=== PATIENT | female | born 1975 | race Caucasian/White ===

== ENCOUNTER 2016-06-30 13:40 | Emergency (ER) | payer BC ==
[~2016-06-30] VITALS: Ht 157.5 cm; Wt 140.0 kg
[~2016-06-30 13:40] MED LIST: (None)3.5 GM OP; ACETTAB3 OR; AMOXICILLIN/CL875 MG PO; CARAFATE PO; CIPRO500 MG OR; CORTISPORIN OP7.5 ML OP; CYMBALTA30 MG PO; DOXYCYCL HYC100 M4 PO; EFFEXOR XR150 MG OR; EFFEXOR XR75 MG OR; ELIMITE5 % EX; ENALAPRIL5 MG; FLEXERIL PO; GEODON80 MG OR; HYDROXYZ HCL25 MG OR; KLONOPIN1 MG PO; LAMICTAL100 M1 OR; LAMICTAL100 M1 PO; LOPRESSOR50 MG OR; LORTAB 10-325 M1 TAB PO; LORTAB 5 OR; LORTAB5 PO; Levaquin PO; MEDDOSEPAK PO; METO50TA52 OR; METOPROL TAR50 MG OR; NAPROSYN500 MG PO; NO HOME MEDS; NORVASC PO; ONDANSETRON4 MG PO; PATANOL0.1 % OP; PLAVIX75 MG OR; PREVACID30 M2 PO; PREVACID30 M3 OR; PRILOSEC40 MG OR; PRILOSEC40 MG PO; PROCHLORPER25 MG RE; PROTONIX40 MG PO; PROZAC20 MG PO; RANITIDINE150 MG PO; TOPROL XL50 MG OR; TORADOL PO; TRAMADOL HCL50 MG OR; TRAZODONE50 MG OR; TRAZODONE50 MG PO; TYLENOL325 MG OR; ULTRAM50 M1 PO; ULTRAM50 MG PO; XANAX0.5 MG PO; ZANTAC150 M1 PO; ZOFRAN ODT4 MG SL; ZOFRAN4 MG/TAB PO; ZPAK PO
[2016-06-30 15:42] LABS: URINE BLOOD DIPSTICK NEGATIVE (NEGATIVE); URINE CLARITY CLEAR; URINE COLOR YELLOW; URINE GLUCOSE - DIPSTICK NEGATIVE (NEGATIVE); URINE KETONE 15 mg/dL (NEGATIVE); URINE LEUK ESTERASE NEGATIVE (NEGATIVE); URINE NITRITE - DIPSTICK NEGATIVE (Negative); URINE PROTEIN - DIPSTICK 30 mg/dL (NEG-TRACE); URINE UROBILINOGEN - DIPSTICK 0.2 E.U./dL (0.2)
[2016-06-30 15:44] LABS: URINE BILIRUBIN - DIPSTICK NEGATIVE (NEGATIVE)
[2016-06-30 15:49] LABS: HEMATOCRIT 46.8 % (37.0-47.0); HEMOGLOBIN 15.9 g/dl (12.0-16.0); IMMATURE GRANULOCYTES 0.3 % (0.0-1.0); MEAN CELL VOLUME 89.3 fL CALC (80.0-100.0); MEAN CORPUSCULAR HGB 30.3 pG CALC (26.0-32.0); NEUT# 7.47 thou/uL (2.00-7.15); RED BLOOD COUNT 5.24 mill/uL (4.20-5.60); RED CELL DISTRI WIDTH 12.4 % (11.5-15.5)
[2016-06-30 15:53] LABS: URINE MUCUS MANY hpf (NONE-FEW); URINE SQUAMOUS EPITHELIAL CELL FEW EPI/hpf (0-FEW)
[2016-06-30 16:00] LABS: ALBUMIN 4.7 g/dL (3.2-5.0); ALKALINE PHOSPHATASE 109 u/l (38-126); AMYLASE 46 u/l (30-110); ANION GAP 18 (6-22 (CALC)); BILIRUBIN, TOTAL 0.9 mg/dL (0.0-1.4); BUN 11 mg/dL (7-17); BUN/CREATININE RATIO 16 (12-20 (CALC)); CALCIUM 9.7 mg/dL (8.4-10.2); CARBON DIOXIDE 29 mmol/l (22-30); CHLORIDE 97 mmol/l (95-108); CREATININE 0.7 mg/dL (0.5-1.0); GFR > 60 ML/MIN (>=60 (CALC)); GFR FOR AFR.AMER. > 60 ML/MIN (>=60 (CALC)); GLUCOSE 103 mg/dL (65-105); LIPASE 48 u/l (23-300); POTASSIUM 3.6 mmol/l (3.5-5.1); SGOT/AST 110 u/l (14-36); SGPT/ALT 108 u/l (9-52); SODIUM 140 mmol/l (137-146)
[2016-06-30 16:11] LABS: MYOGLOBIN 33 ng/mL (0 - 62)
[2016-06-30] MEDS ORDERED: ZOFRAN4 MG/TAB PO (17:05)
[2016-06-30] MEDS ORDERED: NEXIUM40 M1 PO (17:05)
[2016-06-30] MEDS ORDERED: PERCOCET 5/325M1 TAB PO (18:30)
[2016-06-30] MEDS ORDERED: CIPROFLOXACN500 MG PO (19:57)
[2016-06-30 20:20] VITALS: BP 137/68
== END 2016-06-30 20:20 | disposition home or self-care (01) | DRG 392 ==
LOC: ED 13:40
PROVIDERS: Emergency Medicine
DX: K52.9 Noninfective gastroenteritis and colitis, unspecified (principal); N39.0 Urinary tract infection, site not specified; R10.13 Epigastric pain; R11.10 Vomiting, unspecified
CPT/HCPCS: Q9967; S0164

== ENCOUNTER 2016-08-17 11:22 | Emergency (ER) | payer BC ==
[~2016-08-17] VITALS: Ht 157.5 cm; Wt 138.0 kg
[~2016-08-17 11:22] MED LIST changes: +CIPROFLOXACN500 MG PO; +NEXIUM40 M1 PO; +PERCOCET 5/325M1 TAB PO
[2016-08-17 14:56] VITALS: BP 164/105
== END 2016-08-17 14:56 | disposition home or self-care (01) | DRG 556 ==
LOC: ED 11:22
DX: M79.651 Pain in right thigh (principal); R22.41 Localized swelling, mass and lump, right lower limb; M79.661 Pain in right lower leg

== ENCOUNTER 2016-10-26 10:05 | Observation (INO) | payer SELFPAY ==
[~2016-10-26] VITALS: Ht 157.5 cm; Wt 139.0 kg
[2016-10-26] MEDS ORDERED: AMLODIPINE5 MG PO (10:19)
[2016-10-26 10:56] LABS: URINE BILIRUBIN - DIPSTICK NEGATIVE (NEGATIVE); URINE BLOOD DIPSTICK NEGATIVE (NEGATIVE); URINE CLARITY CLEAR; URINE COLOR YELLOW; URINE GLUCOSE - DIPSTICK NEGATIVE (NEGATIVE); URINE KETONE NEGATIVE (NEGATIVE); URINE LEUK ESTERASE NEGATIVE (NEGATIVE); URINE NITRITE - DIPSTICK NEGATIVE (Negative); URINE PROTEIN - DIPSTICK NEGATIVE (NEG-TRACE); URINE SPECIFIC GRAVITY 1.015
[2016-10-26 10:57] LABS: HEMATOCRIT 44.1 % (37.0-47.0); HEMOGLOBIN 15.2 g/dl (12.0-16.0); IMMATURE GRANULOCYTES 0.3 % (0.0-1.0); MEAN CELL VOLUME 89.3 fL CALC (80.0-100.0); MEAN CORPUSCULAR HGB 30.8 pG CALC (26.0-32.0); MEAN CORPUSCULAR HGB CONC 34.5 g/L CALC (32.0-36.0); NEUT# 6.07 thou/uL (2.00-7.15); RED BLOOD COUNT 4.94 mill/uL (4.20-5.60); RED CELL DISTRI WIDTH 12.6 % (11.5-15.5)
[2016-10-26 11:15] LABS: ALBUMIN 4.4 g/dL (3.2-5.0); ALKALINE PHOSPHATASE 89 u/l (38-126); ANION GAP 15 (6-22 (CALC)); BILIRUBIN, TOTAL 0.5 mg/dL (0.0-1.4); BUN 9 mg/dL (7-17); BUN/CREATININE RATIO 13 (12-20 (CALC)); CALCIUM 9.6 mg/dL (8.4-10.2); CARBON DIOXIDE 25 mmol/l (22-30); CHLORIDE 103 mmol/l (95-108); CREATININE 0.7 mg/dL (0.5-1.0); GFR > 60 ML/MIN (>=60 (CALC)); GFR FOR AFR.AMER. > 60 ML/MIN (>=60 (CALC)); GLUCOSE 108 mg/dL (65-105); POTASSIUM 3.4 mmol/l (3.5-5.1); SGOT/AST 44 u/l (14-36); SGPT/ALT 79 u/l (9-52); SODIUM 140 mmol/l (137-146)
[2016-10-26 11:23] LABS: MYOGLOBIN 24 ng/mL (0 - 62)
[2016-10-26 13:07] VITALS: BP 138/84
[2016-10-26 16:10] VITALS: BP 124/67
[2016-10-26 20:25] VITALS: BP 130/85
[2016-10-27 02:02] VITALS: BP 123/75
[2016-10-27 05:33] VITALS: BP 131/73
[2016-10-27 06:40] LABS: CHOLESTEROL HDL RATIO 4.9 (<4.4 (CALC))
[2016-10-27 07:50] VITALS: BP 132/84
[2016-10-27 09:22] VITALS: BP 132/84
[2016-10-27] MEDS ORDERED: ADLT ASA LOW81 MG PO (09:47)
[2016-10-27] MEDS ORDERED: ATORVASTATIN CA10 MG PO (09:47)
== END 2016-10-27 10:58 | disposition home or self-care (01) | DRG 313 ==
LOC: ENPENDDIS → ED 10:05 → ED-I 11:30 → ED 12:22 → MS2 12:23
PROVIDERS: Emergency Medicine; ADMIT Internal Medicine; ATTEND Internal Medicine
DX: R07.89 Other chest pain (principal); I38 Endocarditis, valve unspecified; Z68.43 Body mass index [BMI] 50.0-59.9, adult; R29.0 Tetany; E66.01 Morbid (severe) obesity due to excess calories; I10 Essential (primary) hypertension; F31.9 Bipolar disorder, unspecified; F41.0 Panic disorder [episodic paroxysmal anxiety]; E78.5 Hyperlipidemia, unspecified; Z63.9 Problem related to primary support group, unspecified
CPT/HCPCS: G0378; J2060

== ENCOUNTER 2016-12-08 09:37 | Emergency (ER) | payer SELFPAY ==
[~2016-12-08] VITALS: Ht 157.5 cm; Wt 138.0 kg
[~2016-12-08 09:37] MED LIST changes: +ADLT ASA LOW81 MG PO; +AMLODIPINE5 MG PO; +ATORVASTATIN CA10 MG PO
[2016-12-08 10:25] VITALS: BP 131/83
== END 2016-12-08 10:25 | disposition home or self-care (01) | DRG 153 ==
LOC: ED 09:37
DX: J02.9 Acute pharyngitis, unspecified (principal); R53.81 Other malaise
CPT/HCPCS: J0561

== ENCOUNTER 2016-12-21 15:41 | Emergency (ER) | payer SELFPAY ==
[~2016-12-21] VITALS: Ht 157.5 cm; Wt 135.0 kg
[2016-12-21] MEDS ORDERED: EC-NAPROSYN500 MG PO (16:20)
[2016-12-21] MEDS ORDERED: TRAMADOL HYDROC50 MG PO (16:20)
[2016-12-21] MEDS ORDERED: ATORVASTATIN CA20 MG PO (16:31)
[2016-12-21 17:27] VITALS: BP 140/61
== END 2016-12-21 17:27 | disposition home or self-care (01) | DRG 563 ==
LOC: ED 15:41
DX: S93.601A Unspecified sprain of right foot, initial encounter (principal); I10 Essential (primary) hypertension; S83.91XA Sprain of unspecified site of right knee, initial encounter; F41.9 Anxiety disorder, unspecified; F31.9 Bipolar disorder, unspecified; W01.0XXA Fall on same level from slipping, tripping and stumbling without subsequent striking against object, initial encounter; Y93.89 Activity, other specified; Y92.128 Other place in nursing home as the place of occurrence of the external cause

== ENCOUNTER 2017-01-31 12:02 | Observation (INO) | payer SELFPAY ==
[~2017-01-31] VITALS: Ht 157.5 cm; Wt 134.4 kg
[~2017-01-31 12:02] MED LIST changes: +ATORVASTATIN CA20 MG PO; +EC-NAPROSYN500 MG PO; +TRAMADOL HYDROC50 MG PO
[2017-01-31 12:54] LABS: URINE BILIRUBIN - DIPSTICK NEGATIVE (NEGATIVE); URINE BLOOD DIPSTICK NEGATIVE (NEGATIVE); URINE CLARITY CLEAR; URINE COLOR YELLOW; URINE GLUCOSE - DIPSTICK NEGATIVE (NEGATIVE); URINE KETONE TRACE mg/dL (NEGATIVE); URINE LEUK ESTERASE NEGATIVE (NEGATIVE); URINE NITRITE - DIPSTICK NEGATIVE (Negative); URINE PROTEIN - DIPSTICK TRACE mg/dL (NEG-TRACE)
[2017-01-31 12:55] LABS: BARBITURATES NEGATIVE (NEGATIVE); COCAINE NEGATIVE (NEGATIVE); METHADONE NEGATIVE (NEGATIVE); OXCYCODONE NEGATIVE (NEGATIVE); TETRAHYDROCANNABIONOL NEGATIVE (NEGATIVE); TRICYLIC ANTIDEPRESSANTS NEGATIVE (NEGATIVE)
[2017-01-31 13:33] LABS: HEMATOCRIT 44.6 % (37.0-47.0); HEMOGLOBIN 15.1 g/dl (12.0-16.0); IMMATURE GRANULOCYTES 0.3 % (0.0-1.0); MEAN CELL VOLUME 91.4 fL CALC (80.0-100.0); MEAN CORPUSCULAR HGB 30.9 pG CALC (26.0-32.0); MEAN CORPUSCULAR HGB CONC 33.9 g/L CALC (32.0-36.0); NEUT# 7.33 thou/uL (2.00-7.15); RED BLOOD COUNT 4.88 mill/uL (4.20-5.60); RED CELL DISTRI WIDTH 12.2 % (11.5-15.5)
[2017-01-31 13:44] LABS: ALBUMIN 4.5 g/dL (3.2-5.0); ALKALINE PHOSPHATASE 83 u/l (38-126); AMYLASE 34 u/l (30-110); ANION GAP 15 (6-22 (CALC)); BILIRUBIN, TOTAL 0.7 mg/dL (0.0-1.4); BUN 11 mg/dL (7-17); BUN/CREATININE RATIO 17 (12-20 (CALC)); CALCIUM 9.6 mg/dL (8.4-10.2); CARBON DIOXIDE 26 mmol/l (22-30); CHLORIDE 104 mmol/l (95-108); CREATININE 0.7 mg/dL (0.5-1.0); ETHYL ALCOHOL 0 mg/dl (0-30); GFR > 60 ML/MIN (>=60 (CALC)); GFR FOR AFR.AMER. > 60 ML/MIN (>=60 (CALC)); GLUCOSE 97 mg/dL (65-105); LIPASE 56 u/l (23-300); POTASSIUM 3.4 mmol/l (3.5-5.1); SGOT/AST 31 u/l (14-36); SGPT/ALT 49 u/l (9-52); SODIUM 142 mmol/l (137-146); TOTAL PROTEIN 7.7 g/dL (6.3-8.2)
[2017-01-31 13:51] LABS: ACT PARTIAL THROMBO TIME 26.6 SECONDS (20.0-32.5); INTERNATIONAL NORMALIZED RATIO 1.1 RATIO (0.7-1.3); PROTHROMBIN TIME 11.8 SECONDS (9.0-12.5)
[2017-01-31 15:40] VITALS: BP 154/76
[2017-02-01] VITALS: BP 141/77
[2017-02-01 04:00] VITALS: BP 145/86
[2017-02-01 06:04] LABS: HEMATOCRIT 43.8 % (37.0-47.0); HEMOGLOBIN 14.9 g/dl (12.0-16.0); IMMATURE GRANULOCYTES 0.3 % (0.0-1.0); MEAN CELL VOLUME 91.6 fL CALC (80.0-100.0); MEAN CORPUSCULAR HGB 31.2 pG CALC (26.0-32.0); NEUT# 5.11 thou/uL (2.00-7.15); RED BLOOD COUNT 4.78 mill/uL (4.20-5.60); RED CELL DISTRI WIDTH 12.3 % (11.5-15.5)
[2017-02-01 06:14] LABS: ANION GAP 13 (6-22 (CALC)); BUN 12 mg/dL (7-17); BUN/CREATININE RATIO 20 (12-20 (CALC)); CALCIUM 9.5 mg/dL (8.4-10.2); CALCULATED LDLCHOLESTEROL 136 mg/dL (62-129 (CALC)); CARBON DIOXIDE 28 mmol/l (22-30); CHLORIDE 104 mmol/l (95-108); CHOLESTEROL HDL RATIO 5.1 (<4.4 (CALC)); CREATININE 0.6 mg/dL (0.5-1.0); GFR > 60 ML/MIN (>=60 (CALC)); GFR FOR AFR.AMER. > 60 ML/MIN (>=60 (CALC)); GLUCOSE 103 mg/dL (65-105); HDL CHOLESTEROL 39 mg/dL (>=40); POTASSIUM 3.8 mmol/l (3.5-5.1); SODIUM 141 mmol/l (137-146); TOTAL CHOLESTEROL 199 mg/dl (0-199); TOTAL TRIGLYCERIDES 121 mg/dl (30-149); VLDL CHOLESTROL 24 mg/dl (1-41 (CALC))
[2017-02-01 07:43] VITALS: BP 133/85
[2017-02-01 11:47] VITALS: BP 151/86
[2017-02-01] MEDS ORDERED: AMLODIPINE BESYL5 MG PO (12:25)
[2017-02-01] MEDS ORDERED: ASPIRIN ADULT L81 M2 PO (12:26)
== END 2017-02-01 13:23 | disposition home or self-care (01) | DRG 313 ==
LOC: ED 12:02 → ED-I 14:20 → ED 14:43 → MS2 14:44
PROVIDERS: Family Medicine; ADMIT Internal Medicine; ATTEND Internal Medicine
DX: R07.89 Other chest pain (principal); Z68.43 Body mass index [BMI] 50.0-59.9, adult; I10 Essential (primary) hypertension; I16.0 Hypertensive urgency; E78.5 Hyperlipidemia, unspecified; F31.9 Bipolar disorder, unspecified; F41.9 Anxiety disorder, unspecified; E66.9 Obesity, unspecified; R55 Syncope and collapse
CPT/HCPCS: G0378

== ENCOUNTER 2017-06-23 17:36 | Emergency (ER) | payer SELFPAY ==
[~2017-06-23] VITALS: Ht 157.5 cm; Wt 85.9 kg
[~2017-06-23 17:36] MED LIST changes: +AMLODIPINE BESYL5 MG PO; +ASPIRIN ADULT L81 M2 PO
[2017-06-23] MEDS ORDERED: LORTAB 1010 MG PO (17:59)
[2017-06-23 19:10] LABS: ALBUMIN 4.3 g/dL (3.2-5.0); ALKALINE PHOSPHATASE 83 u/l (38-126); ANION GAP 18 (6-22 (CALC)); BILIRUBIN, TOTAL 0.4 mg/dL (0.0-1.4); BUN 13 mg/dL (7-17); BUN/CREATININE RATIO 18 (12-20 (CALC)); CARBON DIOXIDE 27 mmol/l (22-30); CHLORIDE 98 mmol/l (95-108); CREATININE 0.7 mg/dL (0.5-1.0); GFR > 60 ML/MIN (>=60 (CALC)); GFR FOR AFR.AMER. > 60 ML/MIN (>=60 (CALC)); POTASSIUM 3.6 mmol/l (3.5-5.1); SGOT/AST 27 u/l (14-36); SGPT/ALT 42 u/l (9-52); SODIUM 140 mmol/l (137-146); TOTAL PROTEIN 7.5 g/dL (6.3-8.2)
[2017-06-23 20:35] LABS: URINE BILIRUBIN - DIPSTICK NEGATIVE (NEGATIVE); URINE BLOOD DIPSTICK NEGATIVE (NEGATIVE); URINE COLOR YELLOW; URINE GLUCOSE - DIPSTICK NEGATIVE (NEGATIVE); URINE KETONE NEGATIVE (NEGATIVE); URINE LEUK ESTERASE NEGATIVE (NEGATIVE); URINE NITRITE - DIPSTICK NEGATIVE (Negative); URINE PROTEIN - DIPSTICK NEGATIVE (NEG-TRACE); URINE UROBILINOGEN - DIPSTICK 0.2 E.U./dL (0.2)
[2017-06-23 20:43] LABS: URINE CLARITY CLEAR
[2017-06-23] MEDS ORDERED: AMLODIPINE5 MG PO (21:03)
[2017-06-23] MEDS ORDERED: METO25TAB PO (21:03)
[2017-06-23 21:26] VITALS: BP 142/83
== END 2017-06-23 21:23 | disposition home or self-care (01) | DRG 305 ==
LOC: ED 17:36
PROVIDERS: Family Medicine
DX: I10 Essential (primary) hypertension (principal)

== ENCOUNTER 2017-07-19 10:49 | Day surgery (SDC) | payer OTHER ==
[~2017-07-19 10:49] MED LIST changes: +LORTAB 1010 MG PO; +METO25TAB PO
[2017-07-19] MEDS ORDERED: PERCOCET 10/31 COMBO PO (17:56)
[2017-07-19 19:16] VITALS: BP 106/88
== END 2017-07-19 19:17 | disposition home or self-care (01) | DRG 508 ==
LOC: ORM 10:49
PROVIDERS: ATTEND Orthopaedic Surgery
PROC: 0RQJ4ZZ Repair Right Shoulder Joint, Percutaneous Endoscopic Approach (ICD-10-PCS; principal; 2017-07-19)
PROC: 0RNJ4ZZ Release Right Shoulder Joint, Percutaneous Endoscopic Approach (ICD-10-PCS; 2017-07-19)
DX: S43.431A Superior glenoid labrum lesion of right shoulder, initial encounter (principal); I10 Essential (primary) hypertension; M75.51 Bursitis of right shoulder; X58.XXXA Exposure to other specified factors, initial encounter
CPT/HCPCS: J2710

== ENCOUNTER 2017-11-17 10:03 | Emergency (ER) | payer SELFPAY ==
[~2017-11-17] VITALS: Ht 167.6 cm; Wt 122.0 kg
[~2017-11-17 10:03] MED LIST changes: +PERCOCET 10/31 COMBO PO
[2017-11-17] MEDS ORDERED: EPIPEN 2-P0.3 MG/0.3 SC (10:54)
[2017-11-17] MEDS ORDERED: DELTASONE20 MG PO (10:54)
[2017-11-17 11:01] VITALS: BP 175/92
== END 2017-11-17 11:15 | disposition home or self-care (01) | DRG 916 ==
LOC: ED 10:03
DX: T78.40XA Allergy, unspecified, initial encounter (principal); L50.0 Allergic urticaria; Y92.89 Other specified places as the place of occurrence of the external cause

== ENCOUNTER 2018-02-28 09:54 | Observation (INO) | payer SELFPAY ==
[~2018-02-28] VITALS: Ht 167.6 cm; Wt 131.6 kg
[~2018-02-28 09:54] MED LIST changes: +DELTASONE20 MG PO; +EPIPEN 2-P0.3 MG/0.3 SC
--- NOTE | 2018-02-28 10:00 | NUR ---
PT BROUGHT DIRECTLY TO RM 13 VIA WHEELCHAIR, MONITORS APPLIED AND EKG IN PROGRESS
[2018-02-28] MEDS ORDERED: BENADRYL 25MG C25 MG PO (10:09)
--- NOTE | 2018-02-28 10:10 | NUR ---
PT AMBULATED TO ROOM PT STATES THAT SHE HAS BEEN ITCHY SINCE YESTERDAY- UNKNOWN CAUSE. PT STATES THAT SHE BEGAN HAVING CHEST PRESSURE THAT WOKE HER UP ABOUT 0300. PT IS AOX4. PT DENIES ANY SOB, N/V OR WEAKNESS.
[2018-02-28 10:19] LABS: HEMATOCRIT 46.1 % (37.0-47.0); HEMOGLOBIN 15.5 g/dl (12.0-16.0); IMMATURE GRANULOCYTES 0.3 % (0.0-5.0); MEAN CELL VOLUME 91.8 fL CALC (80.0-100.0); MEAN CORPUSCULAR HGB 30.9 pG CALC (26.0-32.0); MEAN CORPUSCULAR HGB CONC 33.6 g/L CALC (32.0-36.0); NEUT# 5.32 thou/uL (2.00-7.15); RED BLOOD COUNT 5.02 mill/uL (4.20-5.60); RED CELL DISTRI WIDTH 12.6 % (11.5-15.5)
[2018-02-28 10:34] LABS: BUN 12 mg/dL (7-17); BUN/CREATININE RATIO 21 (12-20 (CALC)); CARBON DIOXIDE 26 mmol/l (22-30); CHLORIDE 105 mmol/l (95-108); CREATININE 0.6 mg/dL (0.5-1.0); GFR > 60 ML/MIN (>=60 (CALC)); GFR FOR AFR.AMER. > 60 ML/MIN (>=60 (CALC)); SODIUM 141 mmol/l (137-146)
[2018-02-28 10:38] LABS: ANION GAP 15 (6-22 (CALC)); POTASSIUM 4.6 mmol/l (3.5-5.1)
--- NOTE | 2018-02-28 11:10 | NUR ---
PT STATES THAT HER CHEST PRESSURE IS MAINTAINING AT A 3/10. PT STATES THAT ITCHING HAS DECREASED. NO OTHER COMPLAINTS OR NEEDS STATED
--- NOTE | 2018-02-28 12:10 | NUR ---
PT RESTING ON STRETCHER, NO COMPLAINTS STATED AT THIS TIME.
--- NOTE | 2018-02-28 12:28 | NUR ---
REPORT CALLED TO MARCO A SAENZN- ACCEPTED PT
--- NOTE | 2018-02-28 12:33 | NUR ---
PT ARRIVED ON FLOOR VIA STRETCHER ACCOMPANIED BY RNEAN SLATER ER STAFF; PT AMBULATED FROM STRETCHER TO DIGITAL STANDING SCALE WITH STEADY GAIT; PT COMPLAINED CHEST PAIN 3/10; PT A/O X4; VEHICLE DISMANTLER OBTAINED VITALS;
--- NOTE | 2018-02-28 12:36 | NUR ---
Admission Note Report Given to: MARCO A RAWLS Transported by: Wheelchair X Stretcher Transported with: X Nurse Transporter X Patent IV O2 X Printing Press Operator Apprentice [place] [facility] [place]
[2018-02-28 12:45] VITALS: BP 182/94
--- NOTE | 2018-02-28 13:25 | NUR ---
DR MARTIN AT BEDSIDE TO DISCUSS POC
--- NOTE | 2018-02-28 14:13 | NUR ---
PT MEDICATED WITH ZOFRAN FOR NAUSEA. FAMILIES AT BS. PT VOICED NO OTHER CONCERNS.
--- NOTE | 2018-02-28 14:54 | NUR ---
PT STATED SHE FEELS BETTER AND WOULD LIKE A SANDWICH. KITCHEN BROUGHT UP A TURKEY SANDWICH FOR PT.
[2018-02-28 15:00] VITALS: BP 153/77
--- NOTE | 2018-02-28 15:41 | NUR ---
PT TOLERATED SANDWICH WELL; VOIDED 400CC CLEAR YELLOW URINE; FAMILY MEMBER AT BED SIDE.
--- NOTE | 2018-02-28 17:58 | NUR ---
PT SITTING UP IN BED EATING SUPPER; RESP EVEN AND UNLABORED, TELE IN PLACE; PT INDIPENDENT IN ROOM; PT VOICE NO CONCERNS.
--- NOTE | 2018-02-28 19:20 | NUR ---
BEDSIDE REPORT RECEIVED FROM SINAI STRICKLAND. PT RESTING IN BED SEMI FOWLERS; ALERT AND ORIENTED. BLOOD PRESSURE IS ELEVATED AND PT C/O 5/10 CHEST PRESSURE ALONG WITH MILD HEADACHE AND STATES THAT HER EYES ARE STARTING TO ITCH AGAIN; REQUESTS BENEDRYL. CLONIDINE ADMINSITERED AND RELAXATION TECHNIQUES ENCOURAGED. RESPIRATIONS EVEN AND UNLABORED ON ROOM AIR. PLAN OF CARE DISCUSSED. PT ENCOURAGED TO VERBALIZE CONCERNS. PT VERBALIZES STRESS OF STARTING A NEW JOB AND NOT BEING ABLE TO AFFORD HER BLOOD PRESSURE MEDICATIONS BECAUSE SHE HAS TO TAKE CARE OF HER FAMILY. SAFETY MEASURES IN PLACE. CALL LIGHT WITHIN REACH.
[2018-02-28 19:37] VITALS: BP 173/102
[2018-03-01 00:23] VITALS: BP 121/65
--- NOTE | 2018-03-01 00:23 | NUR ---
PT ASLEEP AT THIS TIME WITH NO SIGNS OF DISTRESS. REPSIRATIONS EVEN AND UNLABORED ON ROOM AIR. IV SITE APPEARS HEALTY AND FLUSHES. PT IS INDEPENDENT IN ROOM. SAFETY MEASURES IN PLACE. CALL LIGHT WITHIN REACH.
[2018-03-01 04:30] VITALS: BP 125/68
--- NOTE | 2018-03-01 04:34 | NUR ---
NO ACUTE CHANGES IN CONDITION THROUGHOUT THE NIGHT. PT DENIES CHEST PAIN AT THIS TIME. VS STABLE. NO REQUESTS OR CONCERNS AT THIS TIME. CALL LIGHT WITHIN REACH.
[2018-03-01 06:16] LABS: HEMATOCRIT 44.3 % (37.0-47.0); HEMOGLOBIN 14.6 g/dl (12.0-16.0); IMMATURE GRANULOCYTES 0.5 % (0.0-5.0); MEAN CELL VOLUME 92.7 fL CALC (80.0-100.0); MEAN CORPUSCULAR HGB 30.5 pG CALC (26.0-32.0); NEUT# 13.73 thou/uL (2.00-7.15); RED BLOOD COUNT 4.78 mill/uL (4.20-5.60); RED CELL DISTRI WIDTH 12.5 % (11.5-15.5)
[2018-03-01 06:35] LABS: ALBUMIN 3.8 g/dL (3.2-5.0); ALKALINE PHOSPHATASE 68 u/l (38-126); ANION GAP 12 (6-22 (CALC)); BILIRUBIN, TOTAL 0.3 mg/dL (0.0-1.4); BUN 13 mg/dL (7-17); BUN/CREATININE RATIO 22 (12-20 (CALC)); CARBON DIOXIDE 25 mmol/l (22-30); CHLORIDE 109 mmol/l (95-108); CREATININE 0.6 mg/dL (0.5-1.0); GFR > 60 ML/MIN (>=60 (CALC)); GFR FOR AFR.AMER. > 60 ML/MIN (>=60 (CALC)); MAGNESIUM 2.2 mg/dL (1.6-2.3); POTASSIUM 4.5 mmol/l (3.5-5.1); SGOT/AST 15 u/l (14-36); SODIUM 141 mmol/l (137-146)
--- NOTE | 2018-03-01 07:00 | NUR ---
RECEIVED REPORT FROM JOHNY URRUTIA. PT SITTING UP IN BED AT THIS TIME. NO S/S OF DISTRESS. ASSESMENT COMPLETED AT THIS TIME(SEE INTERVENTIONS) LUNG SOUNDS CLEAR, HEARTS SOUNDS NORMAL, ACTIVE BS. SCANT SWELLING TO RIGHT KNEE NOTED. #20 RAC FLUSHES WELL, NO REDNESS OR EDEMA. NO CHEST PAIN AT THIS TIME. ALL NEEDS MET. PT ANXIOUSLY AWAITING DR. JANNA STRICKLAND IN REACH. WILL CONTINUE TO MONITOR.
[2018-03-01 08:37] VITALS: BP 145/88
[2018-03-01 11:05] VITALS: BP 117/67
--- NOTE | 2018-03-01 11:41 | NUR ---
DR MARTIN IN TO SEE PT AT THIS TIME. PLAN OF CARE DISCUSSSED AND PT TO D/C. PT VOICING NO NEEDS AT THIS TIME. CALL STRICKLAND IN REACH. WILL CONTINUE TO MONITOR.
[2018-03-01] MEDS ORDERED: CARVEDILOL6.25 MG PO (15:04)
[2018-03-01] MEDS ORDERED: LISINOPRIL5 MG PO (15:05)
--- NOTE | 2018-03-01 15:35 | NUR ---
Discharge instructions given. Patient verbalizes understanding of same. Discharged in stable condition AMBULATED to Home with significant other. All belongings sent with pt.
== END 2018-03-01 15:40 | disposition home or self-care (01) | DRG 313 ==
LOC: ED 09:54 → ED-I 10:50 → ED 11:26 → MS2 11:27
PROVIDERS: Family Medicine; ADMIT Internal Medicine Nephrology; ATTEND Internal Medicine Nephrology
DX: R07.9 Chest pain, unspecified (principal); Z68.43 Body mass index [BMI] 50.0-59.9, adult; I10 Essential (primary) hypertension; E78.5 Hyperlipidemia, unspecified; E66.01 Morbid (severe) obesity due to excess calories; T46.5X6A Underdosing of other antihypertensive drugs, initial encounter; F41.1 Generalized anxiety disorder; F32.9 Major depressive disorder, single episode, unspecified; Z91.120 Patient's intentional underdosing of medication regimen due to financial hardship; Z83.3 Family history of diabetes mellitus; Z86.73 Personal history of transient ischemic attack (TIA), and cerebral infarction without residual deficits; Z82.49 Family history of ischemic heart disease and other diseases of the circulatory system
CPT/HCPCS: G0378

== ENCOUNTER 2018-07-07 05:43 | Emergency (ER) | payer SELFPAY ==
[~2018-07-07] VITALS: Ht 167.6 cm; Wt 118.0 kg
[~2018-07-07 05:43] MED LIST changes: +BENADRYL 25MG C25 MG PO; +CARVEDILOL6.25 MG PO; +LISINOPRIL5 MG PO
[2018-07-07] MEDS ORDERED: CARVEDILOL6.25 MG PO (06:37)
[2018-07-07] MEDS ORDERED: LISINOPRIL5 MG PO (06:38)
[2018-07-07] MEDS ORDERED: DOXYCYCL HYC100 MG PO (06:45)
[2018-07-07] MEDS ORDERED: TESSALON PER100 MG PO (06:45)
[2018-07-07 06:56] VITALS: BP 185/112
== END 2018-07-07 07:10 | disposition home or self-care (01) | DRG 203 ==
LOC: ED 05:43
DX: J20.9 Acute bronchitis, unspecified (principal); I10 Essential (primary) hypertension; E66.01 Morbid (severe) obesity due to excess calories; Z86.73 Personal history of transient ischemic attack (TIA), and cerebral infarction without residual deficits

== ENCOUNTER 2021-05-24 09:45 | Emergency (ER) | payer OTHER ==
[~2021-05-24] VITALS: Ht 167.6 cm; Wt 128.6 kg
[~2021-05-24 09:45] MED LIST changes: +DOXYCYCL HYC100 MG PO; +TESSALON PER100 MG PO
[2021-05-24 10:59] LABS: HEMATOCRIT 43.4 % (37.0-47.0); HEMOGLOBIN 13.8 g/dl (12.0-16.0); IMMATURE GRANULOCYTES 0.3 % (0.0-5.0); MEAN CELL VOLUME 94.1 fL CALC (80.0-100.0); MEAN CORPUSCULAR HGB 29.9 pG CALC (26.0-32.0); MEAN CORPUSCULAR HGB CONC 31.8 g/dL CAL (32.0-36.0); NEUT# 4.09 thou/uL (2.00-7.15); RED BLOOD COUNT 4.61 mill/uL (4.20-5.60)
[2021-05-24 11:23] LABS: ALBUMIN 3.9 g/dL (3.2-5.0); ALKALINE PHOSPHATASE 72 u/l (38-126); ANION GAP 14 (6-22 (CALC)); BUN 9 mg/dL (7-17); BUN/CREATININE RATIO 16 (12-20 (CALC)); CARBON DIOXIDE 25 mmol/l (22-30); CHLORIDE 103 mmol/l (95-108); CREATININE 0.5 mg/dL (0.5-1.0); GFR > 60 ML/MIN (>=60 (CALC)); GFR FOR AFR.AMER. > 60 ML/MIN (>=60 (CALC)); POTASSIUM 3.9 mmol/l (3.5-5.1); SODIUM 139 mmol/l (137-146); TOTAL PROTEIN 7.3 g/dL (6.3-8.2)
[2021-05-24 11:25] LABS: BILIRUBIN, TOTAL 0.1 mg/dL (0.0-1.4); SGOT/AST 44 u/l (14-36)
[2021-05-24] MEDS ORDERED: OXYCODONE10 M1 PO (11:41)
[2021-05-24 12:05] VITALS: BP 148/78
== END 2021-05-24 12:05 | disposition home or self-care (01) | DRG 563 ==
LOC: ED 09:45
PROVIDERS: Emergency Medicine
DX: S92.511A Displaced fracture of proximal phalanx of right lesser toe(s), initial encounter for closed fracture (principal); R79.89 Other specified abnormal findings of blood chemistry; R26.89 Other abnormalities of gait and mobility; I10 Essential (primary) hypertension; F41.9 Anxiety disorder, unspecified; Z86.73 Personal history of transient ischemic attack (TIA), and cerebral infarction without residual deficits; X58.XXXA Exposure to other specified factors, initial encounter

== ENCOUNTER 2021-07-02 09:45 | Emergency (ER) | payer OTHER ==
[~2021-07-02] VITALS: Ht 167.6 cm; Wt 130.0 kg
[2021-07-02] VITALS (14 sets, daily range): BP systolic 119–181; BP diastolic 64–105
[~2021-07-02 09:45] MED LIST changes: +OXYCODONE10 M1 PO
[2021-07-02] MEDS ORDERED: GABAPENTIN100 MG PO (10:26)
[2021-07-02 10:27] LABS: HEMATOCRIT 44.4 % (37.0-47.0); HEMOGLOBIN 14.6 g/dl (12.0-16.0); IMMATURE GRANULOCYTES 0.3 % (0.0-5.0); MEAN CELL VOLUME 91.2 fL CALC (80.0-100.0); MEAN CORPUSCULAR HGB CONC 32.9 g/dL CAL (32.0-36.0); NEUT# 6.94 thou/uL (2.00-7.15); RED BLOOD COUNT 4.87 mill/uL (4.20-5.60)
[2021-07-02] MEDS ORDERED: BUSPIRONE5 MG PO (10:27)
[2021-07-02] MEDS ORDERED: DICLOFENAC SODI75 MG PO (10:27)
[2021-07-02] MEDS ORDERED: VENLAFAXINE HCL75 M1 PO (10:28)
[2021-07-02] MEDS ORDERED: HYDROCHLOROT25 MG PO (10:28)
[2021-07-02] MEDS ORDERED: LOSARTAN POTASS50 MG PO (10:28)
[2021-07-02] MEDS ORDERED: PEPCID20 MG PO (10:29)
[2021-07-02] MEDS ORDERED: CLARITIN-D1 TA2 PO (10:29)
[2021-07-02 10:44] LABS: URINE BILIRUBIN - DIPSTICK NEGATIVE (NEGATIVE); URINE BLOOD DIPSTICK NEGATIVE (NEGATIVE); URINE COLOR YELLOW; URINE GLUCOSE - DIPSTICK NEGATIVE (NEGATIVE); URINE KETONE NEGATIVE (NEGATIVE); URINE LEUK ESTERASE NEGATIVE (NEGATIVE); URINE PH 6.5 (4.5-8.0); URINE PROTEIN - DIPSTICK NEGATIVE (NEG-TRACE); URINE SPECIFIC GRAVITY <=1.005; URINE UROBILINOGEN - DIPSTICK 0.2 E.U./dL (0.2)
[2021-07-02 10:45] LABS: URINE NITRITE - DIPSTICK NEGATIVE (Negative)
[2021-07-02 10:49] LABS: ALBUMIN 4.4 g/dL (3.2-5.0); ALKALINE PHOSPHATASE 82 u/l (38-126); ANION GAP 14 (6-22 (CALC)); BUN 9 mg/dL (7-17); BUN/CREATININE RATIO 12 (12-20 (CALC)); CARBON DIOXIDE 27 mmol/l (22-30); CHLORIDE 100 mmol/l (95-108); CREATININE 0.7 mg/dL (0.5-1.0); GFR > 60 ML/MIN (>=60 (CALC)); GFR FOR AFR.AMER. > 60 ML/MIN (>=60 (CALC)); POTASSIUM 3.2 mmol/l (3.5-5.1); SGOT/AST 51 u/l (14-36); SODIUM 137 mmol/l (137-146); TOTAL PROTEIN 8.3 g/dL (6.3-8.2)
[2021-07-02 10:51] LABS: BILIRUBIN, TOTAL 0.7 mg/dL (0.0-1.4)
[2021-07-02] MEDS ORDERED: HYDROCO/APAP1 TA9 PO (14:45)
[2021-07-02] MEDS ORDERED: ONDANSETRON4 MG PO (14:45)
== END 2021-07-02 16:59 | disposition home or self-care (01) | DRG 392 ==
LOC: ED 09:45
PROVIDERS: Family Medicine
DX: K52.9 Noninfective gastroenteritis and colitis, unspecified (principal); I11.0 Hypertensive heart disease with heart failure; I50.9 Heart failure, unspecified; K21.9 Gastro-esophageal reflux disease without esophagitis; E66.01 Morbid (severe) obesity due to excess calories; Z86.73 Personal history of transient ischemic attack (TIA), and cerebral infarction without residual deficits
CPT/HCPCS: Q9967

== ENCOUNTER 2021-12-11 11:13 | Emergency (ER) | payer OTHER ==
[~2021-12-11] VITALS: Ht 167.6 cm; Wt 128.0 kg
[2021-12-11] VITALS (9 sets, daily range): BP systolic 131–167; BP diastolic 64–105
[~2021-12-11 11:13] MED LIST changes: +BUSPIRONE5 MG PO; +CLARITIN-D1 TA2 PO; +DICLOFENAC SODI75 MG PO; +GABAPENTIN100 MG PO; +HYDROCHLOROT25 MG PO; +HYDROCO/APAP1 TA9 PO; +LOSARTAN POTASS50 MG PO; +PEPCID20 MG PO; +VENLAFAXINE HCL75 M1 PO
[2021-12-11 11:33] LABS: HEMATOCRIT 42.2 % (37.0-47.0); HEMOGLOBIN 14.2 g/dl (12.0-16.0); IMMATURE GRANULOCYTES 0.2 % (0.0-5.0); MEAN CELL VOLUME 89.6 fL CALC (80.0-100.0); MEAN CORPUSCULAR HGB 30.1 pG CALC (26.0-32.0); MEAN CORPUSCULAR HGB CONC 33.6 g/dL CAL (32.0-36.0); NEUT# 5.9 thou/uL (2.00-7.15); RED BLOOD COUNT 4.71 mill/uL (4.20-5.60); RED CELL DISTRI WIDTH 12.8 % (11.5-15.5)
[2021-12-11 11:54] LABS: INTERNATIONAL NORMALIZED RATIO 1.2 RATIO (0.7-1.3); PROTHROMBIN TIME 11.5 SECONDS (9.0-12.5)
[2021-12-11 12:02] LABS: ALBUMIN 4.4 g/dL (3.2-5.0); ALKALINE PHOSPHATASE 85 u/l (38-126); ANION GAP 14 (6-22 (CALC)); BILIRUBIN, TOTAL 0.5 mg/dL (0.0-1.4); BUN 11 mg/dL (7-17); BUN/CREATININE RATIO 15 (12-20 (CALC)); CARBON DIOXIDE 24 mmol/l (22-30); CHLORIDE 105 mmol/l (95-108); CREATININE 0.8 mg/dL (0.5-1.0); GFR FOR AFR.AMER. > 60 ML/MIN (>=60 (CALC)); GFR OTHER RACES > 60 ML/MIN (>=60 (CALC)); POTASSIUM 3.7 mmol/l (3.5-5.1); SGOT/AST 28 u/l (14-36); SODIUM 140 mmol/l (137-146)
[2021-12-11 12:55] LABS: URINE BILIRUBIN - DIPSTICK NEGATIVE (NEGATIVE); URINE BLOOD DIPSTICK NEGATIVE (NEGATIVE); URINE COLOR YELLOW; URINE GLUCOSE - DIPSTICK NEGATIVE (NEGATIVE); URINE KETONE NEGATIVE (NEGATIVE); URINE LEUK ESTERASE NEGATIVE (NEGATIVE); URINE PH 7.5 (4.5-8.0); URINE PROTEIN - DIPSTICK NEGATIVE (NEG-TRACE); URINE SPECIFIC GRAVITY <=1.005
[2021-12-11 13:04] LABS: URINE NITRITE - DIPSTICK NEGATIVE (Negative)
== END 2021-12-11 15:32 | disposition home or self-care (01) | DRG 69 ==
LOC: ED 11:13
PROVIDERS: Family Medicine
DX: G45.9 Transient cerebral ischemic attack, unspecified (principal); I11.0 Hypertensive heart disease with heart failure; I50.9 Heart failure, unspecified; E11.9 Type 2 diabetes mellitus without complications; F41.9 Anxiety disorder, unspecified; Z86.73 Personal history of transient ischemic attack (TIA), and cerebral infarction without residual deficits; F31.9 Bipolar disorder, unspecified; E78.5 Hyperlipidemia, unspecified
CPT/HCPCS: J1100; Q9967

== ENCOUNTER 2022-06-01 10:22 | Emergency (ER) | payer OTHER ==
[2022-06-01] VITALS (8 sets, daily range): BP systolic 125–183; BP diastolic 75–116
[~2022-06-01] VITALS: Ht 167.6 cm; Wt 142.0 kg
[2022-06-01 11:10] LABS: BASO% 0.5 % (0-3); EOS% 2.3 % (0-8); HEMATOCRIT 43.3 % (37.0-47.0); HEMOGLOBIN 13.8 g/dl (12.0-16.0); IMMATURE GRANULOCYTES 0.2 % (0.0-5.0); LYMPH% 28.7 % (15-41); MEAN CELL VOLUME 89.8 fL CALC (80.0-100.0); MEAN CORPUSCULAR HGB 28.6 pG CALC (26.0-32.0); MEAN CORPUSCULAR HGB CONC 31.9 g/dL CAL (32.0-36.0); MONO% 9.1 % (2-13); NEUT# 6.6 thou/uL (2.00-7.15); NEUT% 59.2 % (42-76); RED BLOOD COUNT 4.82 mill/uL (4.20-5.60); RED CELL DISTRI WIDTH 13.1 % (11.5-15.5); URINE BILIRUBIN - DIPSTICK NEGATIVE (NEGATIVE); URINE BLOOD DIPSTICK NEGATIVE (NEGATIVE); URINE COLOR YELLOW; URINE GLUCOSE - DIPSTICK NEGATIVE (NEGATIVE); URINE KETONE NEGATIVE (NEGATIVE); URINE LEUK ESTERASE TRACE (NEGATIVE); URINE NITRITE - DIPSTICK NEGATIVE (Negative); URINE PH 6.5 (4.5-8.0); URINE PROTEIN - DIPSTICK NEGATIVE (NEG-TRACE); URINE UROBILINOGEN - DIPSTICK 0.2 E.U./dL (0.2)
[2022-06-01 11:30] LABS: ALBUMIN 4.5 g/dL (3.2-5.0); ALKALINE PHOSPHATASE 87 u/l (38-126); ANION GAP 11 (6-22 (CALC)); BILIRUBIN, TOTAL 0.3 mg/dL (0.02-1.3); BUN 10 mg/dL (7-17); BUN/CREATININE RATIO 15 (12-20 (CALC)); CARBON DIOXIDE 26 mmol/l (22-30); CHLORIDE 102 mmol/l (95-108); CREATININE 0.7 mg/dL (0.5-1.0); GFR FOR AFR.AMER. > 60 ML/MIN (>=60 (CALC)); GFR OTHER RACES > 60 ML/MIN (>=60 (CALC)); LIPASE 43 u/l (23-300); POTASSIUM 3.5 mmol/l (3.5-5.1); SGOT/AST 30 u/l (14-36); SODIUM 135 mmol/l (137-146); TOTAL PROTEIN 8.4 g/dL (6.3-8.2)
[2022-06-01] MEDS ORDERED: ZOFRAN4 MG/TAB PO (13:29)
== END 2022-06-01 13:51 | disposition home or self-care (01) ==
LOC: ED 10:22
PROVIDERS: Family Medicine
DX: R10.32 Left lower quadrant pain (principal); I11.0 Hypertensive heart disease with heart failure; I50.9 Heart failure, unspecified; F41.9 Anxiety disorder, unspecified
CPT/HCPCS: Q9967